=== PATIENT | male | born 1995 | race Hispanic/Latino ===

== ENCOUNTER 2023-09-25 13:45 | Emergency (ER) | payer BC, OTHER ==
[~2023-09-25] VITALS: Ht 167.6 cm; Wt 117.1 kg
[2023-09-25] MEDS ORDERED: IPRATROPIUM/ALBUTEROL SULFATE 3 ML SOLUTION IH ONE ×2 (14:30→16:00)
[2023-09-25 14:46] VITALS: PULSE 86; RESP 19
[2023-09-25] MEDS ORDERED: PREDNISONE 20 MG TABLET PO ONE (16:00)
[2023-09-25 16:32] VITALS: PULSE 89; RESP 18
[2023-09-25 17:00] LABS: RAPID GROUP A STREP negative (NEGATIVE)
[2023-09-25 17:09] LABS: COVID19 (SARS ANTIGEN RAPID) PRESUMPTIVE NEGATIVE (NEGATIVE)
[2023-09-25 17:10] LABS: INFLUENZA TYPE B Negative For Type B (NEGATIVE)
[2023-09-25 17:12] LABS: INFLUENZA TYPE A Positive For Type A (NEGATIVE)
[2023-09-25] MEDS ORDERED: ALBUHFA IH (17:30)
[2023-09-25] MEDS ORDERED: AZIT250T9 PO ×2 (17:30)
[2023-09-25] MEDS ORDERED: PRED50TA2 PO (17:30)
[2023-09-25 17:44] VITALS: BP 133/81; PULSE 90; RESP 20; O2SAT 99
[2023-09-25] MEDS ORDERED: AUD IH (17:47)
== END 2023-09-25 17:45 | disposition home or self-care (01) ==
LOC: EDH 13:45
DX: J18.9 Pneumonia, unspecified organism (principal); J45.901 Unspecified asthma with (acute) exacerbation; J11.1 Influenza due to unidentified influenza virus with other respiratory manifestations; Z20.822 Contact with and (suspected) exposure to COVID-19
CPT/HCPCS: 71045; 87426; 87804; 87880; 94640

== ENCOUNTER 2024-11-15 18:12 | Emergency (ER) | payer BC ==
[~2024-11-15] VITALS: Ht 167.6 cm; Wt 108.9 kg
[~2024-11-15 18:12] MED LIST: ALBUHFA IH; AUD IH; AZIT250T9 PO; PRED50TA2 PO
[2024-11-15 18:24] VITALS: BP 150/86; PULSE 79; RESP 18; TEMP 98.1; O2SAT 98
[2024-11-15] MEDS ORDERED: AMOX1TAB16 PO (18:26)
--- NOTE | 2024-11-15 18:32 | ERN ---
General Chief Complaint: Influenza Stated Complaint: FLU Time Seen by MD: 18:12 Time Seen by Midlevel: 18:12 Source: patient History of Present Illness Initial Comments Patient is a 29-year-old male with no significant past medical history presenting to the emergency department with throat pain that has been ongoing for three weeks. Today he reports a subjective fever but denies any other symptoms. Denies sick contacts. Denies taking any medications on a daily basis. Denies any past medical/surgical history Allergies: Coded Allergies: No Known Allergies (Unverified Allergy, Unknown, 09/25/23) Home Meds Active Scripts Amoxicillin/Potassium Clav (Amox Tr-K Clv 875-125 mg Tab) 875 Mg-125 Mg Tablet, 1 EACH PO BID for 7 Days, #14 TAB 0 Refills Prov:LARY BROWER 11/15/24 Albuterol Sulfate (Albuterol Sulfate) 2.5 Mg/0.5 Ml Vial.neb, 2.5 MG IH Q6H for wheezing/sob, #20 INH 0 Refills Prov:AYAN ISLAS MD 09/25/23 Albuterol Sulfate (Ventolin Hfa/Proventil Hfa/Proair Hfa) 90 Mcg Puff, 2 PUFF IH Q4H PRN for SHORTNESS OF BREATH/WHEEZING for 30 Days, #1 INH 0 Refills Prov:AYAN ISLAS MD 09/25/23 Prednisone (Prednisone) 50 Mg Tablet, 40 MG PO DAILY for 5 Days, #5 TAB 0 Refills Prov:AYAN ISLAS MD 09/25/23 Azithromycin (Azithromycin) 250 Mg Tablet, 250 MG PO DAILY for 4 Days, #4 TAB Prov:AYAN ISLAS MD 09/25/23 Azithromycin (Azithromycin) 250 Mg Tablet, 500 MG PO ONCE for 1 Day, #1 TAB Prov:AYAN ISLAS MD 09/25/23 Past Medical History Past Medical History: Asthma, Kidney Stone Past Surgical History: None Social History Social History: Negative, Lives with family ROS Dictation CONSTITUTIONAL: Negative except for HPI HEAD/FACE: Negative except for HPI EENT: Negative except for HPI RESPIRATORY: Negative except for HPI GASTROINTESTINAL/ABDOMINAL: Negative except for HPI GENITOURINARY: Negative except for HPI MUSCULOSKELETAL: Negative except for HPI INTEGUMENTARY: Negative except for HPI NEUROLOGICAL/PSYCH: Negative except for HPI HEMATOLOGIC/LYMPHATIC: Negative except for HPI All Systems Negative, Except as noted above. 13 point review of systems assessed and all negative except for above. Physical Exam Physical Exam Dictation PHYSICAL EXAM: GENERAL: alert,, awake oriented x 3 HEENT: EOMI, Sclera non icteric, moist mucosa, erythema to the posterior oropharynx, bilateral tonsillar exudates NECK: Supple, no JVD, trachea midline LUNGS: Clear breath sounds bilaterally. No wheezes HEART: Regular rate and rhythm. Normal S1 and S2, without murmurs ABD: Abdomen soft, nontender. Bowel sounds present EXT: No clubbing or cyanosis, NEURO: Alert and oriented to person, follows commands MDM MDM: Patient is a 29-year-old male with no significant past medical history presenting to the emergency department with throat pain that has been ongoing for three weeks. Today he reports a subjective fever but denies any other symptoms. Denies sick contacts. Denies taking any medications on a daily basis. Denies any past medical/surgical history. On physical examination there is erythema to the posterior oropharynx with bilateral tonsillar exudates. There is a high clinical suspicion for strep pharyngitis. We will not test and we will treat. Patient was given Rocephin, DEXA, and ketorolac in the emergency department will be discharged home with a prescription for oral antibiotics. Patient was advised to follow up with the primary care doctor in 2-3 days for repeat evaluation. Return precautions discussed Differential diagnosis: Strep, upper respiratory infection, viral syndrome There are no social concerns with this patient. Prescription drug management Prescriptions will include: Augmentin Medical management and examination interpretation discussions were had by me with other qualified healthcare professionals as indicated for the patient's care. ED Course Orders Procedure Category Date Status Time Ceftriaxone 1g Vial PHA 11/15/24 Complete (Rocephine 1g Inj) 18:30 Dexamethasone 4mg/Ml PHA 11/15/24 Complete 1ml Vial (Dexametha 18:30 Ketorolac PHA 11/15/24 Complete Tromethamine 30mg/Ml 18:30 Current Medications Medications (Trade) Dose Ordered Sig/Nicky Route PRN Reason Start Time Stop Time Status Last Admin Dose Admin Ceftriaxone Sodium (ROCEphine 1G INJ) 1 gm ONCE ONCE IM 11/15/24 18:30 11/15/24 18:31 DC Dexamethasone Sodium Phosphate (dexaMETHasone 4MG/ML 1ML VIAL) 6 mg ONCE ONCE IM 11/15/24 18:30 11/15/24 18:31 DC Ketorolac Tromethamine (toRADol) 30 mg ONCE ONCE IM 11/15/24 18:30 11/15/24 18:31 DC Vital Signs Date Time Temp Pulse Resp B/P (MAP) Pulse Ox O2 Delivery O2 Flow Rate FiO2 11/15/24 18:24 98.1 79 18 150/86 98 Room Air 0 11/15/24 18:24 98.1 79 18 150/86 98 Room Air* 0 21 DX & DISP Disposition: Discharge Departure Impression: Primary Impression: Pharyngitis Condition: Stable Scripts Amoxicillin/Potassium Clav (Amox Tr-K Clv 875-125 mg Tab) 875 Mg-125 Mg Tablet 1 EACH PO BID for 7 Days, #14 TAB 0 Refills Prov: LARY BROWER 11/15/24 Additional Instructions: Based on your history and physical examination there is a high clinical suspicion for strep pharyngitis. You were given antibiotics in the emergency department. I have given you a prescription for oral antibiotics for outpatient management. Follow up with your primary care doctor in 3-4 days for repeat evaluation. If you develop any new or worsening symptoms please report to the ER for further evaluation. Referrals: NONE (PCP) Time of Disposition: 18:25 I have reviewed the case, and I agree with, Diagnosis and Plan I performed the substantive portion of the visit. I have reviewed and personally made and approve the management plan that is documented in the note by myself or the DEREK. I acknowledge for responsibility for the patient's management plan. LARY BROWER Nov 15, 2024 18:32
[2024-11-15] MEDS: dexaMETHasone SOD PHOSPHATE 4 MG/ML 1ML VIAL IM ONE (18:44)
[2024-11-15] MEDS: cefTRIAXone 1G VIAL IM ONE (18:44)
[2024-11-15] MEDS: ketOROlac 30MG VIAL (30MG/ML) IM ONE (18:45)
== END 2024-11-15 19:28 | disposition home or self-care (01) ==
LOC: EDH 18:12
DX: J02.9 Acute pharyngitis, unspecified (principal); J45.909 Unspecified asthma, uncomplicated; Z79.52 Long term (current) use of systemic steroids
CPT/HCPCS: 99284; 96372 ×3; J1100; J1885; J0696